=== PATIENT | female | born 1985 | race Two or more races ===

== ENCOUNTER 2017-09-24 21:03 | Emergency (ER) | payer OTHER ==
[~2017-09-24] VITALS: Ht 172.7 cm; Wt 100.0 kg
[2017-09-24 22:22] VITALS: BP 116/70
== END 2017-09-24 23:21 | disposition home or self-care (01) ==
LOC: EMS 21:05
DX: N61.0 Mastitis without abscess (principal); N64.59 Other signs and symptoms in breast
CPT/HCPCS: 99281

== ENCOUNTER 2018-07-27 10:59 | Emergency (ER) | payer OTHER ==
[~2018-07-27] VITALS: Ht 172.7 cm; Wt 90.0 kg
[2018-07-27] MEDS ORDERED: KETOROLAC TROMETHAMINE 30 MG/ML VIAL IM ONE (12:15)
[2018-07-27 14:05] VITALS: BP 126/76
== END 2018-07-27 14:18 | disposition home or self-care (01) ==
LOC: EMS 11:03
DX: S39.012A Strain of muscle, fascia and tendon of lower back, initial encounter (principal); W01.0XXA Fall on same level from slipping, tripping and stumbling without subsequent striking against object, initial encounter; Y93.89 Activity, other specified; Y92.89 Other specified places as the place of occurrence of the external cause; Y99.8 Other external cause status
CPT/HCPCS: 72100; 96372; 99283; J1885